=== PATIENT | female | born 1995 | race Caucasian/White ===

== ENCOUNTER 2018-05-20 16:39 | Emergency (ER) | payer OTHER ==
[~2018-05-20] VITALS: Ht 165.1 cm; Wt 60.4 kg
[~2018-05-20 16:39] MED LIST: BENTYL10 MG PO; ZOFRAN ODT4 MG PO; ZOFRAN4 MG PO
[2018-05-20 21:56] VITALS: BP 109/69
[2018-05-20] MEDS ORDERED: IBUPROFEN600 MG PO (22:00)
== END 2018-05-20 22:05 | disposition home or self-care (01) ==
LOC: EME 16:39
DX: S80.01XA Contusion of right knee, initial encounter (principal); S20.312A Abrasion of left front wall of thorax, initial encounter; S30.810A Abrasion of lower back and pelvis, initial encounter; V49.40XA Driver injured in collision with unspecified motor vehicles in traffic accident, initial encounter; Y92.410 Unspecified street and highway as the place of occurrence of the external cause; E03.9 Hypothyroidism, unspecified; F41.9 Anxiety disorder, unspecified; Z87.39 Personal history of other diseases of the musculoskeletal system and connective tissue; Z98.890 Other specified postprocedural states; Z88.0 Allergy status to penicillin; Z88.2 Allergy status to sulfonamides
CPT/HCPCS: 71046; 72070; 73000; 73080; 99281; 99285; J1200; J2765; J7030